=== PATIENT | female | born 1940 | race Caucasian/White ===

== ENCOUNTER 2021-12-23 01:17 | Emergency (ER) | payer MEDICARE, OTHER ==
[2021-12-23] MEDS ORDERED: Sodium Chloride 0.9% 1,000 ML IV SCH (01:45)
[2021-12-23] MEDS ORDERED: Sodium Chloride 0.9% 10 ML Syringe FLUSH PRN (01:45)
[2021-12-23 02:12] LABS: CORONAVIRUS COVID-19 NAA NEGATIVE (NEGATIVE)
== END 2021-12-23 04:09 | disposition home or self-care (01) ==
LOC: JD.ED 01:17
DX: R55 Syncope and collapse (principal); E87.6 Hypokalemia; R11.2 Nausea with vomiting, unspecified; I10 Essential (primary) hypertension; Z88.5 Allergy status to narcotic agent; Z91.040 Latex allergy status; Z79.899 Other long term (current) drug therapy; Z20.822 Contact with and (suspected) exposure to COVID-19
CPT/HCPCS: 0240U; 36415; 70450; 80053; 80307; 82947; 84484; 85025; 93005; 96360; 96361; 99285; A9270; J7030; 93010; 99284